=== PATIENT | male | born 1960 | race African-American/Black ===

== ENCOUNTER 2017-01-27 09:55 | Inpatient (IN) | payer BC ==
[~2017-01-27] VITALS: Ht 182.9 cm; Wt 98.0 kg
[2017-01-27 11:00] VITALS: BP 115/69
[2017-01-27 12:32] VITALS: BP 115/69
[2017-01-27] MEDS ORDERED: SIMETHICONE 40 MG/0.6 ML 30ML ONE (13:25)
[2017-01-27 13:40] LABS: BASOPHILS % 0.4 % (0.0-2.0); EOSINOPHILS % 0.4 % (0.0-5.0); HEMATOCRIT. 25.5 % (42.0-52.0); HEMOGLOBIN. 8.4 g/dL (14.0-18.0); LYMPHOCYTES % 14.1 % (20.0-50.0); MEAN CORPUSCULAR HEMOGLOBIN 31.2 pg (28.0-32.0); MEAN CORPUSCULAR VOLUME 94.7 fL (80.0-94.0); MEAN PLATELET VOLUME 8.2 fl (7.4-10.4); MONOCYTES % 8.5 % (2.0-8.0); NEUTROPHILS % 76.6 % (40.0-76.0); PLATELET 229 x1000/uL (130-400); RED BLOOD CELL COUNT 2.69 mill/uL (4.7-6.1); RED CELL DISTRIBUTION WIDTH 14.5 % (11.6-14.6)
[2017-01-27 14:06] LABS: CARBON DIOXIDE 28 mEq/L (21-32); CHLORIDE 110 mEq/L (98-107)
[2017-01-27] MEDS ORDERED: DEXT 5%/0.45% NACL KCL 20MEQ/L 1,000 ML IV SCH (15:00)
[2017-01-27] MEDS ORDERED: FENTANYL CITRATE/PF 50MCG/ML 2ML VIAL ONE (16:06)
[2017-01-27] MEDS ORDERED: MIDAZOLAM HCL 5 MG/5 ML VIAL ONE (16:07)
[2017-01-27] MEDS ORDERED: MIDAZOLAM HCL 5 MG/5 ML VIAL IV PRN (16:32)
[2017-01-27] MEDS ORDERED: FENTANYL CITRATE/PF 50MCG/ML 2ML VIAL IV PRN (16:34)
[2017-01-27 17:00] VITALS: BP 122/72
[2017-01-27] MEDS ORDERED: PANTOPRAZOLE SODIUM 40 MG/VIAL IV SCH (18:00)
[2017-01-27 18:10] LABS: HEMATOCRIT 24.4 % (42.0-52.0); HEMOGLOBIN 8.3 g/dL (14.0-18.0)
[2017-01-27] MEDS ORDERED: ONDANSETRON HCL 4MG/2ML VIAL IV PRN (18:30)
[2017-01-27] MEDS ORDERED: TEMAZEPAM 15MG CAPSULE PO PRN (18:30)
[2017-01-27] MEDS ORDERED: ACETAMINOPHEN 325MG TABLET PO PRN (18:30)
[2017-01-27 20:00] VITALS: BP 120/73
[2017-01-27] MEDS ORDERED: IRON SUCROSE COMPLEX 100 MG/5 ML ML IV SCH (20:00)
[2017-01-28] VITALS: BP 137/67
[2017-01-28 01:07] LABS: HEMATOCRIT 22.9 % (42.0-52.0); HEMOGLOBIN 7.9 g/dL (14.0-18.0)
[2017-01-28 08:00] VITALS: BP 121/73
[2017-01-28] MEDS ORDERED: SODIUM CHLORIDE 0.9% 10ML VIAL ONE (10:50)
[2017-01-28] MEDS ORDERED: SIMETHICONE 40 MG/0.6 ML 30ML ONE (10:50)
[2017-01-28 12:00] VITALS: BP 134/75
[2017-01-28 13:04] LABS: BASOPHILS % 0.5 % (0.0-2.0); EOSINOPHILS % 0.7 % (0.0-5.0); HEMATOCRIT. 24.3 % (42.0-52.0); HEMOGLOBIN. 8.3 g/dL (14.0-18.0); MEAN CORPUSCULAR HEMOGLOBIN 32.5 pg (28.0-32.0); MEAN CORPUSCULAR VOLUME 95.3 fL (80.0-94.0); MEAN PLATELET VOLUME 8.7 fl (7.4-10.4); MONOCYTES % 9.4 % (2.0-8.0); NEUTROPHILS % 65.4 % (40.0-76.0); PLATELET 242 x1000/uL (130-400); RED BLOOD CELL COUNT 2.55 mill/uL (4.7-6.1); RED CELL DISTRIBUTION WIDTH 14.7 % (11.6-14.6)
[2017-01-28 13:20] LABS: CARBON DIOXIDE 28 mEq/L (21-32); CHLORIDE 109 mEq/L (98-107); TOTAL IRON BINDING CAPACITY 336 ug/dL (250-450)
[2017-01-28 13:25] VITALS: BP 134/75
== END 2017-01-28 14:13 | disposition home or self-care (01) | DRG 378 ==
LOC: 6EST 09:55
PROVIDERS: ADMIT Ophthalmology; ATTEND Ophthalmology
PROC: 0DB68ZX Excision of Stomach, Via Natural or Artificial Opening Endoscopic, Diagnostic (ICD-10-PCS; principal; 2017-01-27 15:00)
DX: K27.0 Acute peptic ulcer, site unspecified, with hemorrhage (principal); D62 Acute posthemorrhagic anemia; K29.60 Other gastritis without bleeding; K29.80 Duodenitis without bleeding; K57.10 Diverticulosis of small intestine without perforation or abscess without bleeding
CPT/HCPCS: 36415; 80048; 83540; 83550; 85014; 85018; 85025; 88305; 88312; 88313; A4216; C9113; J2250; J3010